=== PATIENT | male | born 1960 | race Caucasian/White ===

== ENCOUNTER 2017-05-07 22:15 | Emergency (ER) | payer OTHER ==
[2017-05-07 22:43] LABS: #Basophils 0.1 thou/uL (0.0-0.2); #Lymphocytes 1.4 thou/uL (1.20-3.40); #Monocytes 0.4 thou/uL (0.11-0.59); #Neutrophils 5.9 thou/uL (1.40-6.50); %Basophils 1.1 % (0.0-1.0); %Eosinophils 0.4 % (0.0-10.0); %Lymphocytes 17.9 % (21.0-51.0); %Monocytes 5.5 % (0.0-10.0); %Neutrophils 75.1 % (42.0-75.0); Hemoglobin 15.3 g/dL (14.0-18.0); Mean Corpuscular HGB CONC 33.3 g/dL (32.0-36.0); Mean Corpuscular Volume 90.1 fl (80.0-94.0); Mean Platelet Volume 8.8 fL (7.4-10.4); Platelet Count 173 thou/uL (130-400); RBC Distribution Width 12.6 % (11.5-14.5); Red Blood Cell (RBC) Count 5.09 mill/uL (4.70-6.10); White Blood Cell (WBC) Count 7.8 thou/uL (4.8-10.8)
[2017-05-07 22:57] LABS: Carbon Dioxide 24 mmol/L (22-29); Chloride 105 mmol/L (98-107); Potassium 4.1 mmol/L (3.5-5.1); Sodium 142 mmol/L (136-145)
[2017-05-07 22:58] LABS: CKMB 3.9 ng/mL (0-6.6); Troponin I Less than 0.010 ng/mL (< 0.028)
[2017-05-07 22:59] LABS: Calc. Creatinine Clearance 0 mL/min (70-130); Estimated GFR-MDRD 62; Glucose 107 mg/dL (70-105)
[2017-05-07 23:00] LABS: AST (SGOT) 35 U/L (5-34); Albumin 4.9 g/dL (3.5-5.0); Calcium 10.3 mg/dL (7.8-10.44); Protein, Total 8.5 g/dL (6.0-8.3)
[2017-05-07 23:05] LABS: Alcohol Less than 10 mg/dL (Less than 10)
[2017-05-07 23:37] LABS: ALT (SGPT) 62 U/L (8-55)
--- NOTE | 2017-05-08 08:57 | RAD ---
PORTABLE CHEST: Date: 05/07/17 An AP portable film at 2226 hours shows normal sized heart and clear lungs. There is no edema, conges tion, or lobar infiltrate. No effusions are seen. The mediastinum appears normal. IMPRESSION: No acute thoracic findings. POS: HOME
--- NOTE | 2017-05-08 09:23 | CT ---
PRELIMINARY REPORT/[facility]/EMERGENCY AFTER HOURS PROCEDURE: EXAM: CT Head Without Intravenous Contrast EXAM DATE/TIME: Exam ordered 05/07/2017 10:57 PM CLINICAL HISTORY: 57 years old, male; Signs and symptoms; Syncope and collapse; Patient HX: Fainted; Additional info: A xial & helical pass tryd to clean up lower brain TECHNIQUE: Axial computed tomography images of the head/brain without intravenous contrast. All CT scans at this facility use one or more dose reduction techniques, viz.: automated exposure control; ma/Kv adjustme nt per patient size (including targeted exams where dose is matched to indication; i.e. head); or ite rative reconstruction technique. COMPARISON: No relevant prior studies available. FINDINGS: Brain: Multifocal encephalomalacia/gliosis. No hemorrhage. No significant white matter disease. Ventricles: Unremarkable. No ventriculomegaly. Bones/joints: Unremarkable. No acute fracture. Soft tissues: Unremarkable. Sinuses: Unremarkable as visualized. No acute sinusitis. Mastoid air cells: Unremarkable as visualized. No mastoid effusion. IMPRESSION: No acute brain findings. Thank you for allowing us to participate in the care of your patient. Dictated and Authenticated by: Jonathan Mejias MD 05/07/2017 11:31 PM Central Time ([place] & [place]) FINAL REPORT CT OF THE BRAIN WITHOUT CONTRAST: Date: 05/07/[address] was done for evaluation of syncope and gait disturbance. No prior scans were availab le for comparison. FINDINGS: There is extensive encephalomalacia in the left frontal lobe and probably the anterior left temporal lobe from presumably prior strokes. There is an additional area in the right cerebellar hemisphere th at seems more likely old than new. There were no findings of bleeding, mass, or gross edema. The vent ricles are normal in size and show no shift. Small acute strokes might be missed against this backgro und and would be better demonstrated by a MRI. The visible paranasal sinuses are clear. The mastoid a ir cells are clear. IMPRESSION: Findings most consistent with extensive encephalomalacia from prior strokes, primarily in the left fr ontal, anterior left temporal, and right cerebellar regions. Report in agreement with preliminary reading by [facility]. POS: HOME
== END 2017-05-07 23:59 | disposition short-term general hospital (02) ==
LOC: BURERS 22:15
DX: R55 Syncope and collapse (principal); I10 Essential (primary) hypertension; B19.20 Unspecified viral hepatitis C without hepatic coma
CPT/HCPCS: 36416; 70450; 71045; 80307; 82040; 82310; 82374; 82435; 82553; 82565; 82947; 84132; 84155; 84295; 84450; 84460; 84484; 85025; 93005